=== PATIENT | male | born 1995 | race Caucasian/White ===

== ENCOUNTER 2018-07-28 19:50 | Emergency (ER) | payer SELFPAY ==
[~2018-07-28] VITALS: Ht 167.6 cm; Wt 63.5 kg
[2018-07-28 20:13] VITALS: BP 151/84
[2018-07-28] MEDS ORDERED: HYDROcodone-ACET 10/325MG TAB PO ONE (22:45)
== END 2018-07-28 23:02 | disposition home or self-care (01) ==
LOC: ER 19:58
DX: L02.416 Cutaneous abscess of left lower limb (principal); L73.1 Pseudofolliculitis barbae
CPT/HCPCS: 10060

== ENCOUNTER 2018-07-29 15:46 | Emergency (ER) | payer SELFPAY ==
[~2018-07-29] VITALS: Ht 167.6 cm; Wt 63.5 kg
[2018-07-29 15:55] VITALS: BP 139/69
[2018-07-29] MEDS ORDERED: cefTRIAXone SOD 1,000 MG VL IM ONE (17:00)
== END 2018-07-29 17:52 | disposition home or self-care (01) ==
LOC: ER 15:52
DX: L02.416 Cutaneous abscess of left lower limb (principal)
CPT/HCPCS: 99282; J0696